=== PATIENT | male | born 1960 | race Two or more races ===

== ENCOUNTER 2019-04-23 15:14 | Inpatient (IN) | payer BC ==
[2019-04-23] VITALS (24 sets, daily range): BP systolic 66–102; BP diastolic 36–63
[~2019-04-23] VITALS: Ht 177.8 cm; Wt 80.7 kg
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
[2019-04-23] MEDS ORDERED: IV NS 0.9% 1,000 ML BAG IV ONE (15:30)
[2019-04-23 15:31] LABS: BASOPHILS # (AUTO) 0.1 /CMM (0.0-0.2); BASOPHILS % (AUTO) 0.5 % (0.0-2.0); EOSINOPHILS % (AUTO) 0.2 % (0.0-6.0); HEMATOCRIT 44 % (39-51); HEMOGLOBIN 15.6 g/dL (13.5-17.5); LYMPHOCYTES # (AUTO) 0.7 /CMM (0.8-4.8); LYMPHOCYTES % (AUTO) 6.2 % (20.0-44.0); MEAN CORPUSCULAR HGB CONC 35 g/dl (31.0-36.0); MEAN CORPUSCULAR VOLUME 93 fL (80-96); MONOCYTES # (AUTO) 0.8 /CMM (0.1-1.30); MONOCYTES % (AUTO) 6.6 % (2.0-12.0); NEUTROPHILS # (AUTO) 10.5 /CMM (1.8-8.9); NEUTROPHILS % (AUTO) 86.5 % (43.0-81.0); PLATELET COUNT (AUTO) 152 /CMM (150-450); RED BLOOD CELL COUNT(AUTO) 4.75 MIL/uL (4.5-6.0); WHITE BLOOD COUNT (AUTO) 12.1 K/uL (4.3-11.0)
--- NOTE | 2019-04-23 15:50 | NUR ---
BURNETT CATHETER INSERTED BY STERILE TECHNIQUE PER PROTOCOL. URINE COLLECTED AND SENT TO STAT LAB. RECTAL TEMP OBTAINED. PT HAS ABRASIONS ON BUTTOCKS, WELL ERYTHEMA OF BILATERAL KNEES
[2019-04-23 16:10] LABS: ALCOHOL, BLOOD < 3 mg/dL (0-0); CALCIUM, SERUM 9.1 mg/dL (8.5-10.1); CARBON DIOXIDE 26 mmol/L (21-32); CHLORIDE 100 mmol/L (98-107); CREATININE 1.3 mg/dL (0.6-1.3); GLUCOSE 102 mg/dL (74-106); POTASSIUM 3.8 mmol/L (3.5-5.1); SODIUM SERUM 137 mmol/L (136-145); UREA NITROGEN, BLOOD 15 mg/dL (7-18)
[2019-04-23 16:12] LABS: ACETAMINOPHEN < 10 ug/ml (10-30)
[2019-04-23 16:17] LABS: ALANINE AMINOTRANSFERASE 38 U/L (12-78); ALBUMIN 4.3 g/dL (3.4-5.0); ALKALINE PHOSPHATASE 67 U/L (46-116); ASPARTATE AMINOTRANSFERASE 31 U/L (15-37); BILIRUBIN,DIRECT 0.2 mg/dL (0.0-0.2); BILIRUBIN,TOTAL 0.9 mg/dL (0.2-1.0); LIPASE 89 U/L (73-393); TOTAL PROTEIN, SERUM 7.1 g/dL (6.4-8.2)
[2019-04-23 16:28] LABS: APPEARANCE,URINE Clear (CLEAR); BILIRUBIN,URINE Negative (NEGATIVE); BLOOD, URINE Negative Ery/uL (NEGATIVE); COLOR,URINE Yellow (YELLOW); KETONES,URINE Negative (NEGATIVE); LEUKOCYTE ESTERASE ,URINE Negative (NEGATIVE); NITRITE, URINE Negative (NEGATIVE); PH,URINE 5.5 (5.0-8.0); PROTEIN,URINE Negative (NEGATIVE); UGLUCOSE Negative (NEGATIVE); UROBILINOGEN,URINE 0.2 EU/dL (0.2)
[2019-04-23 16:37] LABS: CREATINE KINASE, TOTAL 222 U/L (39-308)
--- NOTE | 2019-04-23 16:54 | NUR ---
PT STILL UNRESPONSIVE AND TACHYCARDIC. SNORING IN BED. WILL CONT TO MONITOR.
[2019-04-23] MEDS ORDERED: CEFTRIAXONE 1GM BAG (ER ONLY) 50 ML IV ONE (16:58)
[2019-04-23] MEDS ORDERED: ZOLPIDEM TARTRATE 5 MG TABLET PO PRN (17:00)
[2019-04-23] MEDS ORDERED: CEFTRIAXONE 1GM BAG (ER ONLY) 1 GM/50 ML PIGGYBACK IV ONE (17:00)
[2019-04-23] MEDS ORDERED: ACETAMINOPHEN 325 MG TABLET PO PRN (17:00)
[2019-04-23] MEDS ORDERED: MAGNESIUM HYDROXIDE 30 ML UDC PO PRN (17:00)
[2019-04-23] MEDS ORDERED: Z GUARD REMEDY 2 OZ OINT TP PRN (17:00)
[2019-04-23] MEDS ORDERED: MAG HYDROX/AL HYDROX/SIMETH 30 ML UDC PO PRN (17:00)
[2019-04-23] MEDS ORDERED: ONDANSETRON HCL/PF 4 MG/2 ML VIAL IVP PRN (17:00)
[2019-04-23] MEDS ORDERED: HYDROCODONE/APAP 5/325MG 1 EACH TABLET PO PRN (17:00)
--- NOTE | 2019-04-23 17:36 | NUR ---
REPORT GIVEN TO TAY BRIONES FOR [facility], 116-1 TELE
--- NOTE | 2019-04-23 17:40 | NUR ---
RECEIVED REPORT FROM ER
--- NOTE | 2019-04-23 17:50 | NUR ---
[facility]
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
--- NOTE | 2019-04-23 18:00 | NUR ---
PATIENT BELONGINGS ACCOUNTED FOR CELL PHONE RANG AND THOR WALKER ON PHONE. TOLE [facility] AND ROOM AWAITING FOR HER TO IDENTIFY .
[2019-04-23] MEDS: IV NS 0.9% 1,000 ML IV SCH ×2 (18:12→23:21)
[2019-04-23 18:20] LABS: ABG BASE EXCESS -0.4 mmol/L; ABG OXYGEN SATURATION 95.6 % (92.0-98.5); ABG PCO2 46.8 mmHg (35.0-45.0); ABG PH 7.356 (7.350-7.450); ABG PO2 85.8 mmHg (75.0-100.0); AaDO2 58.6 mmHg; COHb 0.5 % (0.5-1.5); MetHb 1.1 % (0.0-1.5); O2Hb 94.1 % (94.0-97.0); SITE, ABG Right Radial; VENT MODE, BG 2L NC
--- NOTE | 2019-04-23 19:00 | NUR ---
RN RAUL NOTES PATIENT CONT TO BE NON RESPONSIVE WITH EPISODES OF APNEA. NO SIGNS OF RESPIRATORY DISTRESS SATURATING 98% ON 2 LTRS NASAL CANNULA. NO SIGNS OF PAIN NOTED. SINUS TACHY ON MONITOR 110-125 . IVF NS RUNNING @ 125 ML/HR LAC 18 GAUGE. HOB ELEVATED . AT BESIDE GIVING HISTORY. INFORMED OF PHOTOS TAKEN ASKED IDENTIFY ABRASIONS ON SACRAL/BUTTOCKS PRIOR TO ADMISSION SAYS THAT THEY WERE NOT THERE. Addendum: 04/23/19 at 5 by ANSELMO JAMES RN CONT THAT ABRASION WAS NOT THERE THIS MORNING. EXPRESSED CONCERN AND ASKED IF OK TO CALL MONICO. FAMILY FRIEND CALLED MONICO. WILL CONT TO MONITOR ACCORDINGLY
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
--- NOTE | 2019-04-23 19:40 | NUR ---
PATIENTS CALLED ME INTO ROOM PATIENT COLOR WAS PALE NO RESPONSE TO STIMULI OR VOICE AND NO BREATH SOUNDS AND PULSELESS. CALLED FOR A CODE BLUE AND STARTED CHEST COMPRESSIONS ON PATIENT UNTIL CODE TEAM ARRIVED
--- NOTE | 2019-04-23 19:55 | NUR ---
PT TRANSPORTED TO ICU BED 260. REPORT GIVEN TO CLARITA WALLACE
--- NOTE | 2019-04-23 20:10 | NUR ---
ICU/CHIEF AIRPORT GUIDE PT IS S/P CODE BLUE, ROSC ACHIEVED, PLACE INTO ROOM 260.
--- NOTE | 2019-04-23 20:15 | NUR ---
ICU/FISHER SWORDFISH RADIOLOGY CALLED TO ASK IF PT IS READY FOR ABDOMINAL CT, NOTIFIED THEM THAT PT IS UNABLE BP, STATING MEDICATION TO STABILIZE THIS. CHARGE NURSE AWARE OF THIS, AND AGREED PT IS UNSTABLE FOR TRANSPORT AT THIS TIME S/P CODE WITH BP IN THE 60'S.
[2019-04-23] MEDS ORDERED: IOHEXOL-300 100 ML VIAL IV ONE (20:29)
[2019-04-23] MEDS ORDERED: CT SWABBABLE VALVE TRANS SET 1 EA INFUS.SET MC ONE (20:29)
[2019-04-23] MEDS ORDERED: IV NS 0.9% 250 ML IV ONE (20:29)
--- NOTE | 2019-04-23 20:29 | NUR ---
PT INTUBATED W/ 7.5ETT @ 22CM BY ER S/P CODE BLUE, BREATH SOUNDS EQUAL, COARSE; TUBE PLACEMENT CONFIRMED BY POSITIVE COLOR CHANGE ON CO2 DETECTOR AND BILATERAL BREATH SOUNDS. XRAY DONE, AWAITING RESULTS. ETT SECURED W/ ANCHOFAST, PATENT. PT SX'ED TO LARGE AMOUNTS OF THIN BROWN, "COFFEE GROUND" SECRETIONS. PT BROUGHT TO ER, PLACED ON MECHANICAL VENT W/ SETTING AC 14 600 100% +5. VENT IN RED OUTLET, AMBUBAG AT BEDSIDE, VENT ALARMS CHECKED AND AUDIBLE. ABG TO BE DRAWN. Addendum: 04/23/19 at 2031 by CHERISE SHAW RT Amended: Links added.
[2019-04-23] MEDS ORDERED: phenytoin SODIUM IV 1,000 MG in IV NS 0.9% 100 ML IV ONE (20:30)
[2019-04-23] MEDS ORDERED: IV NS 0.9% 1,000 ML IV PRN (20:30)
--- NOTE | 2019-04-23 20:30 | NUR ---
ICU/SIEVE MAKER REPORT FROM DAY RAUL NURSE WAS RECEIVED.
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
[2019-04-23 20:50] LABS: OCCULT BLOOD STOOL POSITIVE (NEGATIVE)
[2019-04-23 20:51] LABS: ABG BASE EXCESS -3.9 mmol/L; ABG OXYGEN SATURATION 98.5 % (92.0-98.5); ABG PCO2 34.6 mmHg (35.0-45.0); ABG PH 7.387 (7.350-7.450); ABG PO2 212.1 mmHg (75.0-100.0); AaDO2 466.3 mmHg; COHb 0.5 % (0.5-1.5); MetHb 0.8 % (0.0-1.5); O2Hb 97.2 % (94.0-97.0); SITE, ABG Right Radial; VENT MODE, BG AC 14 600 +5 100
[2019-04-23 20:57] LABS: CALCIUM, SERUM 8.6 mg/dL (8.5-10.1); CREATININE 1.5 mg/dL (0.6-1.3); POTASSIUM 3.9 mmol/L (3.5-5.1)
[2019-04-23] MEDS: PHENYLEPHRINE 80 MG in IV D5W 250 ML IV PRN (20:59)
[2019-04-23 21:00] LABS: BASOPHILS % (AUTO) 0.3 % (0.0-2.0); HEMATOCRIT 39 % (39-51); HEMOGLOBIN 13.4 g/dL (13.5-17.5); LYMPHOCYTES # (AUTO) 0.3 /CMM (0.8-4.8); LYMPHOCYTES % (AUTO) 4.6 % (20.0-44.0); MEAN CORPUSCULAR HGB CONC 34 g/dl (31.0-36.0); MEAN CORPUSCULAR VOLUME 96 fL (80-96); MONOCYTES # (AUTO) 0.1 /CMM (0.1-1.30); MONOCYTES % (AUTO) 2.2 % (2.0-12.0); NEUTROPHILS # (AUTO) 5.7 /CMM (1.8-8.9); NEUTROPHILS % (AUTO) 92.9 % (43.0-81.0); PLATELET COUNT (AUTO) 139 /CMM (150-450); RED BLOOD CELL COUNT(AUTO) 4.08 MIL/uL (4.5-6.0); WHITE BLOOD COUNT (AUTO) 6.1 K/uL (4.3-11.0)
--- NOTE | 2019-04-23 21:00 | NUR ---
ICU/OFFICE CORRESPONDENT CHARGE NURSE WAS NOTIFIED ABOUT LOW BLOOD PRESSURE, KISHORE STARTED. SEE FLOWSHEET FOR TITRATIONS OF KISHORE.
[2019-04-23 21:04] LABS: ALBUMIN 3.3 g/dL (3.4-5.0); BILIRUBIN,TOTAL 0.5 mg/dL (0.2-1.0); TOTAL PROTEIN, SERUM 5.5 g/dL (6.4-8.2)
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
[2019-04-24] VITALS (88 sets, daily range): BP systolic 80–153; BP diastolic 44–91
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
[2019-04-24] MEDS ORDERED: NOREPINEPHRINE 4 MG/4 ML AMPUL IV ONE (00:35)
[2019-04-24] MEDS: LORAZEPAM INJ 2 MG/ML VIAL IV PRN ×2 (01:02→19:55)
--- NOTE | 2019-04-24 01:10 | NUR ---
ICU/INSIDE WIREMAN PT APPEARS TO HAVE SOME SEIZURE LIKE ACTIVITY, CHARGE NURSE NOTIFIED GAVE ATIVAN IVP PER CHARGE NURSE AND MAR DOSE. WILL MONITOR THIS PT.
[2019-04-24] MEDS: PHENYLEPHRINE 80 MG in IV D5W 250 ML IV PRN (01:18)
--- NOTE | 2019-04-24 01:20 | NUR ---
ICU/SHOEBLACK CALLED RADIOLOGY FOR ETT TUBE PLACEMENT. RESULTS MADE AWARE, CHARGE NURSE NOTIFIED.
--- NOTE | 2019-04-24 01:30 | NUR ---
ICU/REGISTRY RN LEVO STARTED DUE TO LOW BP BY CHARGE NURSE, WILL CONTINUE TO MONITOR THIS PT. Addendum: 04/24/19 at 0639 by CLARITA ROSE REGISTRY RN BP IS 86/59 WITH KISHORE MAX OUT. LEVO STARTED SECOND PRESSOR.
[2019-04-24] MEDS: NOREPINEPHRINE 16 MG in IV D5W 500 ML IV PRN ×2 (01:33→14:06)
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
--- NOTE | 2019-04-24 02:08 | NUR ---
RT NOTE PATIENT RECEIVED INTUBATED WITH 7.5 ET TUBE @ 22 CM LIP LINE. VENT SETTINGS: AC 14, 600, 50%, 0 PEEP . COFFEE GROUND SECRETIONS NOTED. ET TUBE SECURED AND PATENT. VENT PLUGGED TO RED OUTLET. ALARMS ON AND AUDIBLE. FAMILY @ BEDSIDE. WILL CONTINUE TO MONITOR CLOSELY.
--- NOTE | 2019-04-24 02:20 | NUR ---
ICU/ORTHOPEDIC RADIOLOGIC TECHNOLOGIST DEPROVAN WAS STARTED BY CHARGE NURSE, BECAUSE PT APPEARS TO BE WAKING UP.
[2019-04-24] MEDS: PROPOFOL 100 ML IV PRN ×4 (02:21→22:30)
[2019-04-24] MEDS: PHENYTOIN SODIUM IV 50 MG/ML VIAL IV SCH ×3 (04:36→21:17)
[2019-04-24 04:45] LABS: BASOPHILS % (AUTO) 0.2 % (0.0-2.0); HEMATOCRIT 42 % (39-51); HEMOGLOBIN 14.7 g/dL (13.5-17.5); LYMPHOCYTES # (AUTO) 0.4 /CMM (0.8-4.8); LYMPHOCYTES % (AUTO) 5.1 % (20.0-44.0); MEAN CORPUSCULAR HGB CONC 35 g/dl (31.0-36.0); MEAN CORPUSCULAR VOLUME 95 fL (80-96); MONOCYTES # (AUTO) 0.2 /CMM (0.1-1.30); MONOCYTES % (AUTO) 2.1 % (2.0-12.0); NEUTROPHILS # (AUTO) 7.8 /CMM (1.8-8.9); NEUTROPHILS % (AUTO) 92.6 % (43.0-81.0); PLATELET COUNT (AUTO) 146 /CMM (150-450); RED BLOOD CELL COUNT(AUTO) 4.47 MIL/uL (4.5-6.0); WHITE BLOOD COUNT (AUTO) 8.5 K/uL (4.3-11.0)
[2019-04-24 04:53] LABS: CALCIUM, SERUM 8.5 mg/dL (8.5-10.1); CREATININE 1.2 mg/dL (0.6-1.3); MAGNESIUM 1.3 mg/dL (1.8-2.4); PHOSPHORUS 2.3 mg/dL (2.5-4.9); POTASSIUM 4.1 mmol/L (3.5-5.1)
--- NOTE | 2019-04-24 05:31 | NUR ---
RT NOTE END OF SHIFT: PATIENT STABLE ON MECHANICAL VENTILATION. SMALL THIN LIGHT BROWN SECRETIONS NOTED. HME REPLACED. ALARMS ON AND AUDIBLE. NO SOB NOTED. ET TUBE MOVED FROM RIGHT TO LEFT. CUFF CHECKED VIA CARTOGRAPHY PROFESSOR. MONITORED CLOSELY T/O SHIFT. ET TUBE SECURED AND PATENT.
--- NOTE | 2019-04-24 06:30 | NUR ---
ICU/BALE SEWER KISHORE OFF WITH LEVO AT 10 MCG. TITRATION MADE BY CHARGE NURSE. WILL CONTINUE TO MONITOR THIS PT.
--- NOTE | 2019-04-24 06:50 | NUR ---
THOR [phone] AT BEDSIDE ALL NIGHT NOW STEPPED OUT FOR CHANGE OF SHIFT
[2019-04-24] MEDS: IV NS 0.9% 1,000 ML IV SCH ×2 (07:25→14:41)
[2019-04-24] MEDS ORDERED: POTASSIUM PHOSPHATE MM 15 MMOL in IV D5W 250 ML IV SCH (08:00)
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
[2019-04-24] MEDS: Magnesium 1GM/D5W 100ML PREMIX 100 ML IV SCH ×2 (08:02→08:59)
[2019-04-24] MEDS: POTASSIUM PHOSPHATE MM 7.5 MMOL in IV D5W 100 ML IV SCH ×2 (08:50→11:48)
[2019-04-24] MEDS ORDERED: IOHEXOL-300 100 ML VIAL IV ONE (12:25)
[2019-04-24] MEDS ORDERED: CT SWABBABLE VALVE TRANS SET 1 EA INFUS.SET MC ONE (12:25)
[2019-04-24] MEDS ORDERED: IV NS 0.9% 250 ML IV ONE (12:25)
[2019-04-24] MEDS ORDERED: CALCIUM CHLORIDE 1,000 MG/10 ML DISP.SYRIN IV ONE (12:28)
[2019-04-24] MEDS ORDERED: SODIUM BICARBONATE SYR 50 MEQ/50 ML DISP.SYRIN IV ONE (12:28)
[2019-04-24] MEDS ORDERED: EPINEPHRINE (1:10,000) SYRINGE 1 MG/10 ML DISP.SYRIN IVP ONE (12:28)
--- NOTE | 2019-04-24 13:00 | NUR ---
pt is sedated on Diprivan at 30mcg, Junctional rhythm, on levo at 10mcg, when off sedation able to move extremities but does not follow commands, successful CT of abdomen, pt tolerated well, no rectal bleeding or bloody emesis noted, v/s stable, no pain, at the bedside.
--- NOTE | 2019-04-24 13:52 | NUR ---
pt's has been talking to Dr. Mcgee regarding transferring pt to high level of care, case managed is on the case, laborer hide house is aware.
[2019-04-24] MEDS ORDERED: FEE PK DOSING 1 MIN EA MC ONE (13:59)
[2019-04-24] MEDS ORDERED: CEFEPIME 1 GM in IV NS 0.9% 50 ML IV SCH (14:00)
[2019-04-24] MEDS: CEFEPIME 2 GM in IV D5W 100 ML IV SCH ×2 (14:34→21:16)
[2019-04-24] MEDS: VANCOMYCIN 1 GM in IV D5W 250 ML IV SCH (14:34)
--- NOTE | 2019-04-24 16:13 | NUR ---
pt is sedated on Diprivan at 30mcg, accelerated junctional, receiving levo at 10mcg, v/s stable, no pain, pt cleaned, changed and repositioned q2hrs, family at the bedside.
--- NOTE | 2019-04-24 19:43 | NUR ---
PATIENT RECEIVED ORALLY INTUBATED WITH 7.5 ET TUBE SECURED @ 22 CM LIP LINE. VENT SETTINGS: AC 14, 600, 40%, 0 PEEP. PT IS SEDATED ,SUCTIONED MODERATE BROWN/ HERNÁNDEZ THICK SECRETIONS. ET TUBE SECURED AND PATENT. VENT PLUGGED TO RED OUTLET. ALARMS ON AND AUDIBLE. WILL CONTINUE TO MONITOR CLOSELY.
--- NOTE | 2019-04-24 20:19 | NUR ---
NOTIFIED DR BENÍTEZ JANITOR CUSTODIAN BECAUSE PT BEGAN TO THRASH AROUND TRYING TO SIT UP AND PULLING ON THE RESTRAINTS. INCREASED PROPOFOL ACCORDING TO PROTOCOL AND PT CONTINUE TO THRASH AROUND AND TRY TO SIT UP. ADMINISTERED ATIVAN 1MG PER ORDERS. RECEIVED ORDERS TO TITRATE PROPOFOL TO COMFORT UP TO 100MCG. READBACK ORDERS PERFORMED AND CARRIED OUT.
[2019-04-25] VITALS (95 sets, daily range): BP systolic 80–145; BP diastolic 34–101
[2019-04-25] MEDS: IV NS 0.9% 1,000 ML IV SCH ×3 (00:38→17:34)
--- NOTE | 2019-04-25 01:44 | NUR ---
PER PLEASE DO NOT GIVE ANY INFORMATION TO ANYONE EXCEPT HER. ALSO, DO NOT TELL ANYONE ABOUT WHAT HAPPENED TO PT PRIOR TO ARRIVAL.
[2019-04-25] MEDS: PROPOFOL 100 ML IV PRN ×5 (03:31→23:52)
[2019-04-25] MEDS: VANCOMYCIN 1 GM in IV D5W 250 ML IV SCH (03:35)
[2019-04-25 04:39] LABS: BASOPHILS # (AUTO) 0.1 /CMM (0.0-0.2); BASOPHILS % (AUTO) 0.5 % (0.0-2.0); EOSINOPHILS % (AUTO) 0.7 % (0.0-6.0); HEMATOCRIT 36 % (39-51); HEMOGLOBIN 12.8 g/dL (13.5-17.5); LYMPHOCYTES % (AUTO) 8.7 % (20.0-44.0); MEAN CORPUSCULAR HGB CONC 35 g/dl (31.0-36.0); MEAN CORPUSCULAR VOLUME 96 fL (80-96); MONOCYTES # (AUTO) 0.3 /CMM (0.1-1.30); MONOCYTES % (AUTO) 2.7 % (2.0-12.0); NEUTROPHILS # (AUTO) 9.6 /CMM (1.8-8.9); NEUTROPHILS % (AUTO) 87.4 % (43.0-81.0); PLATELET COUNT (AUTO) 112 /CMM (150-450); RED BLOOD CELL COUNT(AUTO) 3.77 MIL/uL (4.5-6.0)
[2019-04-25 04:59] LABS: ALANINE AMINOTRANSFERASE 31 U/L (12-78); ALBUMIN 2.4 g/dL (3.4-5.0); ALKALINE PHOSPHATASE 47 U/L (46-116); ASPARTATE AMINOTRANSFERASE 19 U/L (15-37); BILIRUBIN,TOTAL 0.5 mg/dL (0.2-1.0); CALCIUM, SERUM 8.2 mg/dL (8.5-10.1); CARBON DIOXIDE 28 mmol/L (21-32); CHLORIDE 108 mmol/L (98-107); CREATININE 0.8 mg/dL (0.6-1.3); GLUCOSE 124 mg/dL (74-106); MAGNESIUM 1.9 mg/dL (1.8-2.4); PHOSPHORUS 1.7 mg/dL (2.5-4.9); POTASSIUM 3.8 mmol/L (3.5-5.1); SODIUM SERUM 141 mmol/L (136-145); TOTAL PROTEIN, SERUM 5.3 g/dL (6.4-8.2); UREA NITROGEN, BLOOD 11 mg/dL (7-18)
[2019-04-25] MEDS: PHENYTOIN SODIUM IV 50 MG/ML VIAL IV SCH (05:10)
[2019-04-25] MEDS: CEFEPIME 2 GM in IV D5W 100 ML IV SCH ×3 (05:10→21:46)
--- NOTE | 2019-04-25 06:33 | NUR ---
PT REMAINS IN NO ACUTE DISTRESS IN BED. PT DID NOT HAVE ANY SIGNIFICANT CHANGE IN CONDITION DURING SHIFT. PT TOLERATED VENT SETTING WELL. ALL NEEDS MET, ALL ORDERS CARRIED OUT. WILL ENDORSE CARE TO AM RN FOR CONTINUITY OF CARE.
--- NOTE | 2019-04-25 07:19 | NUR ---
Pt. received on vent support via 7.5 et tube secured @ 22 cm lip line with ff. parameters as order: AC 14, vt 600, fio2 40%, peep +5. Breath sounds clear bilateral. vent is plugged into red outlet with alarms on and functioning. ambu bag @ bedside. Addendum: 04/25/19 at 0902 by RACHELLE ARREOLA RT Amended: Links added.
[2019-04-25 08:22] LABS: ABG BASE EXCESS -1.2 mmol/L; ABG OXYGEN SATURATION 98.1 % (92.0-98.5); ABG PCO2 40.1 mmHg (35.0-45.0); ABG PH 7.388 (7.350-7.450); ABG PO2 136.9 mmHg (75.0-100.0); AaDO2 102.2 mmHg; COHb 0.3 % (0.5-1.5); MetHb 0.4 % (0.0-1.5); O2Hb 97.4 % (94.0-97.0); PEEP,BG 5 cm H2O; SITE, ABG Left Radial; VT, ABG 600 mL
[2019-04-25] MEDS ORDERED: POTASSIUM PHOSPHATE MM 15 MMOL in IV D5W 250 ML IV SCH (08:30)
--- NOTE | 2019-04-25 08:48 | NUR ---
Pt seen & examined by Dr. Booker, updated about status. Per Kym, she was able to talk to Dr. Booker.
[2019-04-25] MEDS: POTASSIUM PHOSPHATE MM 7.5 MMOL in IV D5W 100 ML IV SCH ×2 (08:50→11:37)
--- NOTE | 2019-04-25 11:06 | NUR ---
0900 Pt seen & examined by Dr. Mcgee, updated about condition & status. 0915 Pt seen & examined by Dr. Parks. Sedation turned off again per MD's order, however, pt became restless & agitated again. Per MD, will not wean today. Family updated at bedside. 1050 Pt seen & examined by PERFECTO Noel. Addendum: 04/25/19 at 1826 by SAIMA JI RN Addendum: (late entry) Per PERFECTO Noel to try wean off from Diprivan drip & give ativan IVP PRN as ordered for agitation.
[2019-04-25] MEDS: NOREPINEPHRINE 16 MG in IV D5W 500 ML IV PRN (12:25)
[2019-04-25] MEDS: VANCOMYCIN 1.25 GM in IV D5W 500 ML IV SCH (15:23)
[2019-04-25] MEDS: LORAZEPAM INJ 2 MG/ML VIAL IV PRN (17:48)
--- NOTE | 2019-04-25 18:26 | NUR ---
DIAGNOSTIC CARDIAC SONOGRAPHER CLOSING NOTES: Pt resting comfortably on his bed at this time, sedated on Diprivan x 25 mcg. SR on telemonitor. On AC mode via ETT, no SOB. IV line access on DUTCH ML w/ Diprivan drip & Levo x 1 mcg both infusing well. RH G18, L EJ G18, & L AC G18, SL, flushing well w/ no s/sx of infection/infiltration noted. FC draining to BSB w/ yellowish UOP. B soft wrist restraints kept on for pt's safety. Safety precaution kept in place at all times w/ bed in lowest & locked pos. Call light placed w/in reach. Will endorse to PM RN for PERFECTO.
--- NOTE | 2019-04-25 20:00 | NUR ---
SENIOR UX DEVELOPER AT BEDSIDE; UPDATED WITH PLAN OF CARE. WANTED RESULTS TO BE RELAYED TO HER EXPLAINED TO ONLY MDs CAN GIVE AND EXPLAIN RESULTS. ALSO UPDATED ON VISITORS POLICY.
[2019-04-26] VITALS (74 sets, daily range): BP systolic 96–144; BP diastolic 50–91
[2019-04-26] MEDS: VANCOMYCIN 1.25 GM in IV D5W 500 ML IV SCH ×2 (03:27→16:18)
[2019-04-26] MEDS: PROPOFOL 100 ML IV PRN ×2 (03:27→09:46)
[2019-04-26] MEDS: IV NS 0.9% 1,000 ML IV SCH (03:28)
[2019-04-26 04:52] LABS: BASOPHILS % (AUTO) 0.4 % (0.0-2.0); EOSINOPHILS % (AUTO) 2.6 % (0.0-6.0); HEMATOCRIT 33 % (39-51); HEMOGLOBIN 11.1 g/dL (13.5-17.5); LYMPHOCYTES # (AUTO) 0.6 /CMM (0.8-4.8); LYMPHOCYTES % (AUTO) 8.1 % (20.0-44.0); MEAN CORPUSCULAR HGB CONC 34 g/dl (31.0-36.0); MEAN CORPUSCULAR VOLUME 96 fL (80-96); MONOCYTES # (AUTO) 0.2 /CMM (0.1-1.30); MONOCYTES % (AUTO) 3.3 % (2.0-12.0); NEUTROPHILS # (AUTO) 6.4 /CMM (1.8-8.9); NEUTROPHILS % (AUTO) 85.6 % (43.0-81.0); PLATELET COUNT (AUTO) 97 /CMM (150-450); RED BLOOD CELL COUNT(AUTO) 3.39 MIL/uL (4.5-6.0); WHITE BLOOD COUNT (AUTO) 7.5 K/uL (4.3-11.0)
--- NOTE | 2019-04-26 04:52 | NUR ---
PORTFOLIO ARCHITECT.ANGELO CARE, ORAL CARE, BED BATH GIVEN. LINEN CHANGED. REMAINING SAME VENT SETTING TOLERATED WELL. SAT 98%. NO ACUTE DISTRESS NOTED. ABORIGINAL COMMUNITY COUNCIL MEMBER SHOWING NSR. IV RT UPPERR ARM MIDLINE, RT IJ. IVF NS 125ML/H. DIPRIVAN 50MCG/KG/MIN. AFEBRILE. FC PATENT. URINE DRAINING. HOB ELEVATED. NGT CLAMPED, PT IS NPO. TURN AND REPOSITION Q2H. WILL CONTINUE TO MONITOR VITALS.
[2019-04-26 05:04] LABS: ALBUMIN 2.1 g/dL (3.4-5.0); BILIRUBIN,TOTAL 0.3 mg/dL (0.2-1.0); CALCIUM, SERUM 7.9 mg/dL (8.5-10.1); CREATININE 0.7 mg/dL (0.6-1.3); MAGNESIUM 1.8 mg/dL (1.8-2.4); PHOSPHORUS 2.3 mg/dL (2.5-4.9); POTASSIUM 3.7 mmol/L (3.5-5.1); TOTAL PROTEIN, SERUM 5.1 g/dL (6.4-8.2)
[2019-04-26] MEDS: CEFEPIME 2 GM in IV D5W 100 ML IV SCH ×3 (05:27→21:30)
[2019-04-26 05:32] LABS: BAND % (MANUAL) 5 % (0.0-5.0); LYMPHOCYTES % (MANUAL) 10 % (16-48); MONOCYTES % (MANUAL) 2 % (0-11.0); NEUTROPHILS % (MANUAL) 83 (42-76)
--- NOTE | 2019-04-26 08:00 | NUR ---
RN NOTE: RECEIVED PATIENT IN BED, WITH ETT 7.5 AT THE LIPLINE 22CM ON MECHANICAL VENTILATOR SATURATING 100%. PATIENT WAS ON SEDATION DIPRIVAN DRIP 50MCG. (L) UA MIDLINE NOTED PATENT AND INTACT. THOR, WAS PRESENT AT THE BEDSIDE. ON CURER ACID DRUM SR HR= 70. BED ALARMED AND LOCKED AT ALL TIMES. CALL LIGHT WITHIN REACH. ON SEIZURE PRECAUTION. PADDED SIDE RAILS NOTED IN PLACED. BURNETT CATHETER IN PLACED WITH YELLOW URINE DRAINING TO GRAVITY.
[2019-04-26] MEDS ORDERED: POTASSIUM PHOSPHATE MM 15 MMOL in IV D5W 250 ML IV SCH (08:30)
[2019-04-26] MEDS ORDERED: JEVITY 1.2 CAL 1,000 ML BOTTLE GT PRN (09:00)
[2019-04-26] MEDS: POTASSIUM PHOSPHATE MM 7.5 MMOL in IV D5W 100 ML IV SCH ×2 (09:28→12:31)
[2019-04-26] MEDS: PANTOPRAZOLE 40 MG/PACK PACK NG SCH (09:56)
[2019-04-26] MEDS: ENOXAPARIN SODIUM 40 MG/0.4 ML DISP.SYRIN SQ SCH (10:00)
--- NOTE | 2019-04-26 10:20 | NUR ---
RN NOTE: DR. YOUNG WAS AT THE BEDSIDE AND WAS DISCUSSING THE PLAN OF CARE WITH THE PATIENT'S . DR. WALTON ORDERED TO STOP THE DIPRIVAN DRIP. AND WANTED TO SWITCH TO CPAP MODE. RT ISAMAR WAS MADE AWARE.
--- NOTE | 2019-04-26 11:35 | NUR ---
RT PER DR WALTON ORDER PATIENT WAS PLACED ON CPAP WEANING MODE AND EXTUBATED. PLACED ON 5L N/C SAMIRA WELL. FAMILY AT BEDSIDE
--- NOTE | 2019-04-26 11:40 | NUR ---
RN NOTE: PATIENT WAS EXTUBATED AND HE TOLERATED THE PROCEDURE. THOR, WAS PRESENT AT THE BEDSIDE. PER DR. WALTON REPEAT ABG AT 1230.
--- NOTE | 2019-04-26 12:00 | NUR ---
RN NOTE: DR. WALTON WAS INFORMED THAT THE PATIENT HAS BEEN DOING WELL REMAINED AWAKE, ALERT AND VERBALLY RESPONSIVE S/P EXTUBATION. PER MD, HE WANTED TO DO AN ABG AT 1230 TO SEE HOW THE PATIENT IS DOING AFTER EXTUBATION. THOR, AND A FAMILY FRIEND WAS PRESENT AT THE BEDSIDE. ORDER, NOTED AND CARRIED OUT. MOUTH CARE WAS RENDERED. (B) SOFT WRIST RESTRAINTS WERE RELEASED. PATIENT REMAINED CALM AND COOPERATIVE ON HIS BED. PATIENT WAS SEATED ON UPRIGHT POSITION. RT ISAMAR WAS MADE AWARE OF THE ABG AT 1230. DISCUSSED THE PLAN OF CARE WITH THE PATIENT'S , THRO AND SHE FULLY UNDERSTOOD IT.
--- NOTE | 2019-04-26 13:18 | NUR ---
RN NOTE: DR. YOUNG WAS INFORMED THAT THE PATIENT WAS EXTUBATED AT 1200 TODAY AND PATIENT WAS ALERT, AWAKE AND VERBALLY RESPONSIVE. TUBE FEEDING AND SWALLOW EVALUATION WAS ORDERED BY DR. YOUNG. ORDER, NOTED AND CARRIED OUT. THOR, AND PATIENT WAS INFORMED. SPEECH THERAPIST WAS INFORMED WELL.
[2019-04-26 13:36] LABS: ABG BASE EXCESS 1.6 mmol/L; ABG OXYGEN SATURATION 98.1 % (92.0-98.5); ABG PCO2 46.4 mmHg (35.0-45.0); ABG PH 7.385 (7.350-7.450); ABG PO2 146.2 mmHg (75.0-100.0); AaDO2 85.6 mmHg; COHb 0.5 % (0.5-1.5); MetHb 0.3 % (0.0-1.5); O2Hb 97.3 % (94.0-97.0); SITE, ABG Right Radial; VENT MODE, BG 5L N/C
--- NOTE | 2019-04-26 14:00 | NUR ---
RN NOTE: PATIENT'S ABG WAS REPORTED TO DR. WALTON AND HE WANTED TO PUT THE PATIENT ON NC 2L/MIN. INFORMED THOR, AND PATIENT.
--- NOTE | 2019-04-26 14:14 | NUR ---
RN NOTE: SPOKE WITH ERA, SPEECH THERAPIST AND RECEIVED A REPORT FROM HER AFTER DOING THE SWALLOW EVALUATION FOR THE PATIENT. PER ERA SPEECH THERAPIST, THE PATIENT WAS NOT YET READY TO HAVE ANYTHING THROUGH HIS MOUTH EXCEPT ICE CHIPS. PER SPEECH THERAPIST, SHE WILL COME BACK AGAIN TOMORROW TO SEE HOW THE PATIENT IS DOING. THOR, AND PATIENT WAS MADE AWARE.
--- NOTE | 2019-04-26 16:20 | NUR ---
RN NOTE: CALLED BOAT OUTFITTING SUPERVISOR AND INFORMED THEM ABOUT THE STAT MRI BRAIN WO CONTRAST ORDER FOR THE PATIENT. PER BOAT OUTFITTING SUPERVISOR, HE WILL COME AT AROUND 1800 TO DO THE TEST FOR THE PATIENT.
--- NOTE | 2019-04-26 18:15 | NUR ---
RN NOTE: MONA, INFORMATION SYSTEMS SECURITY SPECIALIST CAME AND PATIENT WAS TRANSPORTED FOR THE MRI OF BRAIN WO CONTRAST PER DR. ALMEIDA ORDER. TRANSFER VIA ACLS PROTOCOL. THOR, WAS PRESENT UPON TRANSPORT.
--- NOTE | 2019-04-26 19:25 | NUR ---
PRIVATE DUTY RN NOTE PATIENT IS RESTING WITH 2L O2, RETURNING FROM MRI, DUTCH MIDLINE, RIGHT HAND #18G, LEJ SL IV ALL PATENT FLUSHING WELL, F/C DRAINING TO GRAVITY YELLOW URINE, SKIN KEPT CLEAN AND DRY, SAFETY MAINTAINED AT ALL TIMES, BED IN LOW LOCKED POSITION, WILL CONTINUE TO MONITOR FOR ANY CHANGES.
--- NOTE | 2019-04-26 19:30 | NUR ---
RN NOTE: PATIENT WAS RETURNED TO THE HIS ROOM AFTER MRI BRAIN WO CONTRAST, REMAINED ON STABLE CONDITION. PATIENT'S , THOR REMAINED AT THE BEDSIDE. PATIENT WAS AWAKE, ALERT WITH INTERMITTENT CONFUSION NOTED, BUT VERBALLY RESPONSIVE. DENIED ANY PAIN. TRANSFERRED BACK VIA ACLS PROTOCOL. BEDSIDE REPORT WAS GIVEN TO PM SHIFT NURSE FOR CONTINUITY OF CARE.
[2019-04-27] VITALS (20 sets, daily range): BP systolic 124–149; BP diastolic 80–91
[2019-04-27] MEDS: LORAZEPAM INJ 2 MG/ML VIAL IV PRN (00:06)
[2019-04-27] MEDS: VANCOMYCIN 1.25 GM in IV D5W 500 ML IV SCH ×2 (03:47→15:41)
[2019-04-27 04:56] LABS: BASOPHILS % (AUTO) 0.4 % (0.0-2.0); EOSINOPHILS % (AUTO) 2.4 % (0.0-6.0); HEMATOCRIT 36 % (39-51); HEMOGLOBIN 12.8 g/dL (13.5-17.5); LYMPHOCYTES # (AUTO) 0.5 /CMM (0.8-4.8); MEAN CORPUSCULAR HGB CONC 36 g/dl (31.0-36.0); MEAN CORPUSCULAR VOLUME 95 fL (80-96); MONOCYTES # (AUTO) 0.3 /CMM (0.1-1.30); MONOCYTES % (AUTO) 4.4 % (2.0-12.0); NEUTROPHILS # (AUTO) 6.2 /CMM (1.8-8.9); NEUTROPHILS % (AUTO) 85.8 % (43.0-81.0); PLATELET COUNT (AUTO) 134 /CMM (150-450); RED BLOOD CELL COUNT(AUTO) 3.77 MIL/uL (4.5-6.0); WHITE BLOOD COUNT (AUTO) 7.3 K/uL (4.3-11.0)
[2019-04-27 05:12] LABS: CALCIUM, SERUM 8.3 mg/dL (8.5-10.1); CREATININE 0.8 mg/dL (0.6-1.3); MAGNESIUM 1.6 mg/dL (1.8-2.4); POTASSIUM 3.3 mmol/L (3.5-5.1)
[2019-04-27] MEDS: CEFEPIME 2 GM in IV D5W 100 ML IV SCH ×3 (06:05→21:02)
--- NOTE | 2019-04-27 07:25 | NUR ---
SMALL PIECE CUTTER INITIAL NOTES] PT RECEIVED ON 2L VIA NC. PT A/O X3 WITH PERIODS OF FORGETFULNESS. NO SOB OR ACUTE SIGNS OF DISTRESS NOTED. BREATHING IS EVEN AND UNLABORED. HE DENIES ANY PAIN AT THIS TIME. INVASIVE LINES REMAIN PATENT AND INTACT. NO REDNESS OR SIGNS OF INFILTRATION NOTED. F/C NOTED TO BE C/D/I AND DRAINING TO GRAVITY. HE IS CURRENTLY SR ON THE MONITOR. BED IN LOW LOCKED POSITION, SIDE RAILS UP X2, CALL LIGHT WITHIN REACH. WILL CONTINUE TO MONITOR
[2019-04-27] MEDS: PANTOPRAZOLE 40 MG/PACK PACK NG SCH (08:31)
[2019-04-27] MEDS: ENOXAPARIN SODIUM 40 MG/0.4 ML DISP.SYRIN SQ SCH (09:00)
[2019-04-27] MEDS: POTASSIUM CHLORIDE 20 MEQ TAB.PRT.SR PO SCH ×2 (09:56→11:05)
[2019-04-27] MEDS: Magnesium 1GM/D5W 100ML PREMIX 100 ML IV SCH ×2 (09:56→11:05)
[2019-04-27] MEDS: PANTOPRAZOLE 40 MG TABLET.DR PO SCH ×2 (11:00→21:06)
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
[2019-04-27 16:59] LABS: IRON, SERUM 28 ug/dl (50-175); TOTAL IRON BINDING CAPACITY 143 ug/dl (250-450)
[2019-04-27 17:17] LABS: FERRITIN 410 ng/mL (8-388)
--- NOTE | 2019-04-27 17:56 | NUR ---
HEALTH INFORMATION MANAGEMENT DIRECTORINFIRMARY ATTENDANT NOTES PT TRANSFERRED TO TO TELE UNIT VIA ACLS PROTOCOL. ALL NEEDS ET DURING SHIFT AND ORDERS CARRIED OUT ACCORDINGLY. ALL DUE MEDS GIVEN. PRN CARE RENDERED. INVASIVE LINES REMAIN PATENT AND INTACT. VSS PRIOR TO TRANSFER. ALL BELONGINGS SENT WITH PT. REPORT GIVEN TO TAY BARBA FOR PERFECTO
--- NOTE | 2019-04-27 18:30 | NUR ---
Tele/RN - Assessment/Transfer from ICU Received patient from ICU, A/O x 2, forgetful, denies pain, stable on room air, no acute distress, tele shows SR, Morales catheter in place. Patient oriented to room and use of call light. All belongings accounted. Skin assessment done, patient refused photos to be taken. Transfer orders noted and carried out. at bedside, discussed plan of care and in agreement. Will continue with current medical management.
--- NOTE | 2019-04-27 19:32 | NUR ---
BLAST FURNACE KEEPER OPENING NOTES RECEIVED PT IN BED AWAKE ALERT ORIENTED X2-3 BREATHING EVEN AND UNLABORED ON 2L NC. NO COMPLAINT OF PAIN OR DISCOMFORT AT THIS TIME,ALL IV ACCESS INTACT AND FLUSHING, FAMILY AT BEDSIDE, BED IN LOWEST LOCKED POSITION, CALL LIGHT WITHIN REACH AT ALL TIMES, WILL CONTINUE TO MONITOR FREQUENTLY
--- NOTE | 2019-04-27 23:41 | NUR ---
PER PTS REQUEST, REMOVED F/C, EDUCATED ON VOIDING AND MONITORING I&O PER ROCÍO NOTES, OK TO DC LEX
[2019-04-28] VITALS: BP 138/77
[2019-04-28] MEDS: VANCOMYCIN 1.25 GM in IV D5W 500 ML IV SCH (03:53)
[2019-04-28 04:00] VITALS: BP_SYST 138; BP_SYST 144; BP_DIAS 77; BP_DIAS 82
[2019-04-28] MEDS: CEFEPIME 2 GM in IV D5W 100 ML IV SCH (05:35)
--- NOTE | 2019-04-28 06:16 | NUR ---
APPLIQUER ZIGZAG CLOSING NOTES PT REMAINS IN BED AWAKE ALERT ORIENTED X2-3 BREATHING EVEN AND UNLABORED ON 2L NC. NO COMPLAINT OF PAIN OR DISCOMFORT AT THIS TIME,ALL IV ACCESS INTACT AND FLUSHING, SR IN THE 90S, BED IN LOWEST LOCKED POSITION, CALL LIGHT WITHIN REACH AT ALL TIMES, WILL ENDORSE TO DAY NURSE FOR PERFECTO
[2019-04-28 06:58] LABS: BASOPHILS % (AUTO) 0.5 % (0.0-2.0); EOSINOPHILS % (AUTO) 2.6 % (0.0-6.0); HEMATOCRIT 39 % (39-51); HEMOGLOBIN 13.4 g/dL (13.5-17.5); LYMPHOCYTES # (AUTO) 0.9 /CMM (0.8-4.8); LYMPHOCYTES % (AUTO) 12.5 % (20.0-44.0); MEAN CORPUSCULAR HGB CONC 35 g/dl (31.0-36.0); MEAN CORPUSCULAR VOLUME 94 fL (80-96); MONOCYTES # (AUTO) 0.4 /CMM (0.1-1.30); MONOCYTES % (AUTO) 6.3 % (2.0-12.0); NEUTROPHILS # (AUTO) 5.4 /CMM (1.8-8.9); NEUTROPHILS % (AUTO) 78.1 % (43.0-81.0); PLATELET COUNT (AUTO) 170 /CMM (150-450); RED BLOOD CELL COUNT(AUTO) 4.11 MIL/uL (4.5-6.0); WHITE BLOOD COUNT (AUTO) 6.9 K/uL (4.3-11.0)
[2019-04-28 07:23] LABS: CALCIUM, SERUM 8.8 mg/dL (8.5-10.1); CREATININE 0.8 mg/dL (0.6-1.3); POTASSIUM 3.2 mmol/L (3.5-5.1)
--- NOTE | 2019-04-28 07:30 | NUR ---
TELE/RN NOTE THE PATIENT IS RECEIVED IN BED. ALERT AND ORIENTED X4. IN ROOM AIR AND DENIES SOB. RESPIRATION REGULAR AND UNLABORED. DENIES PAIN. THE PATIENT IN NO APPARENT DISTRESS. LEJ G 18, DUTCH MIDLINE AND RIGHT HAND G 18 PATENT AND SALINE LOCKED. EXTERNAL TELE READING IS SR 91. BED LOW AND LOCKED. SIDE RAILS UP X2. CALL LIGHT WITHIN REACH. WILL CONTINUE TO MONITOR.
[2019-04-28 08:00] VITALS: BP 139/77
[2019-04-28 08:31] LABS: EOSINOPHILS % (MANUAL) 1 % (0-4); LYMPHOCYTES % (MANUAL) 14 % (16-48); MONOCYTES % (MANUAL) 8 % (0-11.0); NEUTROPHILS % (MANUAL) 77 (42-76)
[2019-04-28] MEDS: PANTOPRAZOLE 40 MG TABLET.DR PO SCH (09:58)
[2019-04-28] MEDS: POTASSIUM CHLORIDE 20 MEQ TAB.PRT.SR PO SCH ×3 (09:58→12:39)
[2019-04-28] MEDS ORDERED: PANT40TA2 PO (11:52)
[2019-04-28] MEDS ORDERED: AMOX-430 PO (11:52)
--- NOTE | 2019-04-28 14:10 | NUR ---
MS/RN NOTE THE PATIENT ALERT AND ORIENTED X4. IN ROOM AIR AND DENIES SOB. RESPIRATION REGULAR AND UNLABORED. IN ROOM AIR AND SATURATION IS AT 97%. DENIES PAIN. THE PATIENT IN NO APPARENT DISTRESS. THE PATIENT REFUSED DISCHARGE SKIN ASSESSMENT DESPITE EXPLAINING RISKS AND BENEFITS. CAME TO PRACTICE PERFORMANCE MANAGER THE PATIENT GOING HOME. DISCHARGE EDUCATION IS GIVEN TO THE PATIENT AND . BOTH VERBALIZED UNDERSTANDING. PATIENT WENT HOME WITH ON A PRIVATE CAR.
== END 2019-04-28 14:30 | disposition home or self-care (01) | DRG 917 ==
LOC: ER 15:29 → TELE-TD 17:34 → EDBD 17:34 → ICU 20:04 → MED 04-27 18:01 → TELE 04-27 18:12 → MED 04-28 12:48
PROVIDERS: ADMIT Family Medicine; ATTEND Nurse Practitioner Acute Care
PROC: 0BH18EZ Insertion of Endotracheal Airway into Trachea, Via Natural or Artificial Opening Endoscopic (ICD-10-PCS; principal; 2019-04-23)
PROC: 5A1945Z Respiratory Ventilation, 24-96 Consecutive Hours (ICD-10-PCS; principal; 2019-04-23)
PROC: 05HC33Z Insertion of Infusion Device into Left Basilic Vein, Percutaneous Approach (ICD-10-PCS; 2019-04-24)
PROC: 5A2204Z Restoration of Cardiac Rhythm, Single (ICD-10-PCS; 2019-04-24)
DX: T50.901A Poisoning by unspecified drugs, medicaments and biological substances, accidental (unintentional), initial encounter (principal); G92 Toxic encephalopathy; I46.9 Cardiac arrest, cause unspecified; J69.0 Pneumonitis due to inhalation of food and vomit; E43 Unspecified severe protein-calorie malnutrition; J96.00 Acute respiratory failure, unspecified whether with hypoxia or hypercapnia; N17.0 Acute kidney failure with tubular necrosis; K92.2 Gastrointestinal hemorrhage, unspecified; M62.82 Rhabdomyolysis; E44.1 Mild protein-calorie malnutrition; S30.0XXA Contusion of lower back and pelvis, initial encounter; S80.211A Abrasion, right knee, initial encounter; D72.829 Elevated white blood cell count, unspecified; D69.6 Thrombocytopenia, unspecified; E83.42 Hypomagnesemia; E87.6 Hypokalemia; D64.9 Anemia, unspecified; E83.39 Other disorders of phosphorus metabolism; I10 Essential (primary) hypertension; K21.9 Gastro-esophageal reflux disease without esophagitis; K59.00 Constipation, unspecified; K60.2 Anal fissure, unspecified; S80.212A Abrasion, left knee, initial encounter; S30.810A Abrasion of lower back and pelvis, initial encounter; X58.XXXA Exposure to other specified factors, initial encounter; Y92.9 Unspecified place or not applicable
CPT/HCPCS: 31720; 36415; 36600; 70450-TC; 70551-TC; 71045-TC; 74178; 80048-TC; 80053-TC; 80061-TC; 80076-TC; 80202-TC; 80305; 81000-TC; 82140-TC; 82272-TC; 82550-TC; 82728-TC; 82803-TC; 82962-TC; 83540-TC; 83605-TC; 83690-TC; 83735-TC; 84100-TC; 84484-TC; 85025-TC; 85730-TC; 86631; 86850-TC; 87040-TC; 87081-TC; 87086-TC; 87806; 92526; 92611-TC; 92950-TC; 93307-TC; 94002-TC; 94003-TC; 94760-TC; 94799-TC; 99082-TC; A4216; G0378; G0480; J0171; J0692; J0696; J1165; J1650; J2060; J2370; J3370; J3475; J3490; J7030; J7050; J7060; Q9967